=== PATIENT | male | born 1955 | race Caucasian/White ===

== ENCOUNTER 2023-11-01 12:20 | Outpatient (CLI) | payer MEDICARE | END 2023-11-01 12:21 | disposition home or self-care (01) | LOC: MRI 12:20 | PROVIDERS: ATTEND Psychiatry & Neurology Neurology | DX: G45.9 Transient cerebral ischemic attack, unspecified (principal); G95.89 Other specified diseases of spinal cord | CPT/HCPCS: 70547 ==

== ENCOUNTER 2023-12-22 08:29 | Outpatient (CLI) | payer MEDICARE | END 2023-12-22 08:30 | disposition home or self-care (01) | LOC: CT 08:29 | PROVIDERS: ATTEND Psychiatry & Neurology Neurology | DX: R93.89 Abnormal findings on diagnostic imaging of other specified body structures (principal) | CPT/HCPCS: 82565 ==

== ENCOUNTER 2024-07-02 12:58 | Outpatient (CLI) | payer MEDICARE | END 2024-07-02 12:59 | disposition home or self-care (01) | LOC: SCSMRI 12:58 | PROVIDERS: ATTEND Neurological Surgery | DX: G95.89 Other specified diseases of spinal cord (principal); M47.812 Spondylosis without myelopathy or radiculopathy, cervical region; M47.813 Spondylosis without myelopathy or radiculopathy, cervicothoracic region; Z98.1 Arthrodesis status; Z98.890 Other specified postprocedural states | CPT/HCPCS: 36415; 72141; 82565 ==

== ENCOUNTER 2025-07-01 14:41 | Outpatient (CLI) | payer MEDICARE | END 2025-07-01 14:42 | disposition home or self-care (01) | LOC: SCSMRI 14:41 | PROVIDERS: ATTEND Neurological Surgery | DX: D49.7 Neoplasm of unspecified behavior of endocrine glands and other parts of nervous system (principal); M48.9 Spondylopathy, unspecified | CPT/HCPCS: 70551 ==

== ENCOUNTER 2025-07-21 20:07 | Inpatient (IN) | payer MEDICARE ==
[2025-07-21] MEDS ORDERED: Aspirin Chewable 81 MG TAB ONE (21:02)
[2025-07-21] MEDS ORDERED: Acetaminophen 500 MG TAB ONE (21:02)
[2025-07-21] MEDS ORDERED: Nitroglycerin 2% Ointment 1 INCH/1 GM Packet ONE (21:02)
[2025-07-21 21:51] LABS: #Basophils Less than 0.03 10x3/uL (0.0-0.2); #Eosinophils 0.19 10x3/uL (0.0-0.7); #Monocytes 0.52 10x3/uL (0.11-0.59); #Neutrophils 4.15 10x3/uL (1.40-6.50); %Basophils 0.3 % (0.0-1.0); %Eosinophils 2.9 % (0.0-10.0); %Lymphocytes 24.2 % (21.0-51.0); %Monocytes 8.0 % (0.0-10.0); %Neutrophils 63.4 % (42.0-75.0); Hematocrit 39.1 % (42.0-52.0); Hemoglobin 13.1 g/dL (14.0-18.0); Mean Corpuscular Hemoglobin 27.9 pg (27.0-31.0); Mean Corpuscular Volume 83.4 fL (78.0-98.0); Platelet Count 86 10x3/uL (130-400); Red Blood Cell (RBC) Count 4.69 mill/uL (4.70-6.10); White Blood Cell (WBC) Count 6.54 10x3/uL (4.8-10.8)
[2025-07-21 22:07] LABS: ALT (SGPT) 36 U/L (Less than 45); AST (SGOT) 21 U/L (11-34); Albumin 3.7 g/dL (3.1-4.5); Alkaline Phosphatase 53 U/L (40-110); Anion Gap 9 mmol/L (10-20); BUN (Urea Nitrogen) 21 mg/dL (8.4-25.7); Bilirubin, Total 0.4 mg/dL (0.3-1.2); Calc. Creatinine Clearance 0 mL/min (70-130); Calcium 8.8 mg/dL (7.8-10.44); Carbon Dioxide 28 mmol/L (23-31); Chloride 108 mmol/L (98-107); Globulin 2.4 g/dL (2.4-3.5); Glucose 95 mg/dL (83-110); Potassium 4.2 mmol/L (3.5-5.1); Sodium 141 mmol/L (136-145)
[2025-07-21] MEDS ORDERED: Ondansetron PF 4 MG/2 ML Vial IVP PRN (23:41)
[2025-07-22 04:05] LABS: Anion Gap 13 mmol/L (10-20); BUN (Urea Nitrogen) 22 mg/dL (8.4-25.7); Calc. Creatinine Clearance 39 mL/min (70-130); Calcium 8.5 mg/dL (7.8-10.44); Carbon Dioxide 26 mmol/L (23-31); Cardiac Risk 3.4 (Less than 4.5); Chloride 107 mmol/L (98-107); Cholesterol 103 mg/dl (< 200 Desired); Glucose 90 mg/dL (83-110); HDL Cholesterol 30 mg/dL (>60 Neg Risk); LDL Cholesterol, Calculated 37 mg/dL; Potassium 4.0 mmol/L (3.5-5.1); Sodium 142 mmol/L (136-145); Triglycerides 181 mg/dL (Less than 150)
[2025-07-22 08:39] VITALS: BMI 31.4
[2025-07-22] MEDS ORDERED: Enoxaparin 40 MG (0.4 mL) SYRINGE SC SCH (09:00)
[2025-07-22] MEDS: Allopurinol 100 MG TAB PO SCH (09:16)
[2025-07-22] MEDS: Colchicine 0.6 MG TAB PO SCH (09:16)
[2025-07-22] MEDS: Aspirin 325 MG TAB PO SCH (09:16)
[2025-07-22] MEDS: Lisinopril 20 MG TAB PO SCH (09:16)
[2025-07-22] MEDS: cloNIDine 0.1 MG TAB PO PRN (18:33)
[2025-07-22 19:01] LABS: #Basophils Less than 0.03 10x3/uL (0.0-0.2); #Eosinophils 0.16 10x3/uL (0.0-0.7); #Monocytes 0.45 10x3/uL (0.11-0.59); #Neutrophils 4.90 10x3/uL (1.40-6.50); %Basophils 0.3 % (0.0-1.0); %Eosinophils 2.3 % (0.0-10.0); %Lymphocytes 20.4 % (21.0-51.0); %Monocytes 6.4 % (0.0-10.0); %Neutrophils 69.7 % (42.0-75.0); Hematocrit 42.1 % (42.0-52.0); Hemoglobin 14.0 g/dL (14.0-18.0); Mean Corpuscular Hemoglobin 27.9 pg (27.0-31.0); Mean Corpuscular Volume 83.9 fL (78.0-98.0); Platelet Count 90 10x3/uL (130-400); Red Blood Cell (RBC) Count 5.02 mill/uL (4.70-6.10); White Blood Cell (WBC) Count 7.02 10x3/uL (4.8-10.8)
[2025-07-22] MEDS: Nitroglycerin 2% Ointment 1 INCH/1 GM Packet TOP SCH (20:02)
[2025-07-22] MEDS: Acetaminophen 325 MG TAB PO PRN (20:07)
[2025-07-23 05:45] LABS: Anion Gap 13 mmol/L (10-20); BUN (Urea Nitrogen) 23 mg/dL (8.4-25.7); Calc. Creatinine Clearance 39 mL/min (70-130); Calcium 9.3 mg/dL (7.8-10.44); Carbon Dioxide 25 mmol/L (23-31); Chloride 106 mmol/L (98-107); Glucose 95 mg/dL (83-110); Potassium 4.0 mmol/L (3.5-5.1); Sodium 140 mmol/L (136-145)
[2025-07-23] MEDS ORDERED: hydrALAZINE 20 MG/ML VIAL SLOW IVP PRN (08:38)
[2025-07-23] MEDS: Magnesium Oxide 400 MG TAB PO SCH (08:43)
[2025-07-23 17:14] LABS: Magnesium 2.0 mg/dL (1.6-2.6)
[2025-07-24] MEDS: NIFEdipine XL 60 MG ER.TAB PO SCH (12:42)
[2025-07-24] MEDS: Calcium Carbonate 500 MG ChewTAB PO PRN (19:18)
[2025-07-25 05:58] LABS: Anion Gap 16 mmol/L (10-20); BUN (Urea Nitrogen) 28 mg/dL (8.4-25.7); Calc. Creatinine Clearance 36 mL/min (70-130); Calcium 9.7 mg/dL (7.8-10.44); Carbon Dioxide 22 mmol/L (23-31); Chloride 104 mmol/L (98-107); Glucose 94 mg/dL (83-110); Potassium 3.7 mmol/L (3.5-5.1); Sodium 138 mmol/L (136-145)
[2025-07-25] MEDS: NIFEdipine XL 60 MG ER.TAB PO SCH (10:05)
[2025-07-25 15:10] VITALS: BP 130/76; TEMP 97.8
== END 2025-07-25 16:34 | disposition home or self-care (01) | DRG 313 ==
LOC: ERS 20:07 → ERHOLD 23:25 → OBS 07-22 08:14 → OBSVTOIN 07-22 15:55
PROVIDERS: ADMIT Internal Medicine; ATTEND Internal Medicine
DX: R07.9 Chest pain, unspecified (principal); I47.10 Supraventricular tachycardia, unspecified; M10.9 Gout, unspecified; E78.5 Hyperlipidemia, unspecified; I25.10 Atherosclerotic heart disease of native coronary artery without angina pectoris; I12.9 Hypertensive chronic kidney disease with stage 1 through stage 4 chronic kidney disease, or unspecified chronic kidney disease; N18.30 Chronic kidney disease, stage 3 unspecified; Z96.651 Presence of right artificial knee joint; Z86.73 Personal history of transient ischemic attack (TIA), and cerebral infarction without residual deficits; Z98.890 Other specified postprocedural states; Z88.5 Allergy status to narcotic agent; Z85.528 Personal history of other malignant neoplasm of kidney; Z87.891 Personal history of nicotine dependence; Z82.49 Family history of ischemic heart disease and other diseases of the circulatory system; Z79.82 Long term (current) use of aspirin; Z79.899 Other long term (current) drug therapy
CPT/HCPCS: 36415; 36416; 71045; 71250; 78580; 80048; 80053; 80061; 83036; 83735; 83880; 84484; 85025; 85379; 93005; 93010; 93306; 93970; 94760; A9540